=== PATIENT | female | born 1930 | race Caucasian/White ===

== ENCOUNTER → 2019-04-06 | Outpatient (CLI) | payer MEDICARE ==
[2019-04-08 19:09] LABS: ANA INTERP Negative (.)
[2019-04-09 15:14] LABS: ALBUM 3.7 g/dL (2.9-4.4); ALPHA 1 0.3 g/dL (0.0-0.4); ALPHA 2 0.8 g/dL (0.4-1.0); BETA 1.2 g/dL (0.7-1.3); GAMMA 0.6 g/dL (0.4-1.8); PROTEIN TOTAL 6.6 g/dL (6.0-8.5); SPEP AG RATIO 1.3 (0.7-1.7)
== END | disposition home or self-care (01) ==
LOC: LAB 14:54
PROVIDERS: ATTEND Psychiatry & Neurology Neurology with Special Qualifications in Child Neurology
DX: S06.0X0A Concussion without loss of consciousness, initial encounter (principal); R26.9 Unspecified abnormalities of gait and mobility; G62.9 Polyneuropathy, unspecified; W19.XXXA Unspecified fall, initial encounter; Y93.89 Activity, other specified; Y92.89 Other specified places as the place of occurrence of the external cause; Y99.8 Other external cause status
CPT/HCPCS: 36415; 82607; 82746; 82947; 84165; 84443; 85651; 86038